=== PATIENT | female | born 1970 | race Caucasian/White ===

== ENCOUNTER 2022-05-11 06:15 | Day surgery (SDC) | payer BC ==
[~2022-05-11] VITALS: Ht 167.6 cm; Wt 74.5 kg
[~2022-05-11 06:15] MED LIST: ADIPEX-P37.5 MG PO; MOTRIN 600600 MG/TAB PO; MULTIPLE VITAMI1 TA5 PO; PERCOCET 325 MG1 TA2 PO; PRENATAL VITAMI1 TA5 PO; ZOLOFT 100MG100 MG PO; ZOLOFT50 MG PO
[2022-05-11 07:13] VITALS: BP 116/82; PULSE 84; TEMP 97.6
[2022-05-11] MEDS ORDERED: HYZAAR 50-12.1 UDTAB PO (07:16)
[2022-05-11] MEDS ORDERED: PREMPRO 0.3 MG-1 TAB PO (07:17)
[2022-05-11] MEDS ORDERED: WELLBUTRIN SR150 M1 PO (07:17)
[2022-05-11] MEDS ORDERED: RETIN-A CR0.1 20GM TP (07:18)
[2022-05-11 08:10] VITALS: BP 102/75; PULSE 81; TEMP 96.9
--- NOTE | 2022-05-11 08:10 | NUR ---
Patient arrives to [facility] via cart, accompanied by [facility]IL[facility] Davidson. She is alert and oriented. She ambulates with steady gait and standby assist to the chair in her room. Monitoring is applied - VSS on room air. She denies pain or nausea. She is offered and receives juice and pudding to eat. Her family is at the bedside. Will continue to monitor.
[2022-05-11 08:15] VITALS: BP 104/75; PULSE 73
[2022-05-11 08:30] VITALS: BP 113/82; PULSE 72
--- NOTE | 2022-05-11 08:52 | NUR ---
Patient has met discharge criteria. Discharge instructions are discussed. She denies any questions and verbalizes understanding. PIV is removed with catheter intact and hemostasis achieved. She changes to her clothing independently. She talks with Dr. Brantley. She is escorted to the exit via wheelchair by staff and discharged to the care of her , who drives her home in a private vehicle at [id number].
== END 2022-05-11 08:52 | disposition home or self-care (01) ==
LOC: SDCO 06:15
DX: Z12.11 Encounter for screening for malignant neoplasm of colon (principal)
CPT/HCPCS: J2704; J7120